=== PATIENT | female | born 1980 | race Hispanic/Latino ===

== ENCOUNTER 2019-06-19 18:36 | Emergency (ER) | payer SELFPAY ==
[~2019-06-19] VITALS: Ht 170.2 cm; Wt 85.3 kg
--- OUTSIDE RECORDS SUMMARY | 2019-06-19 18:39 | XMS REPORT ---
Author Author [facility] Organization [facility] Address Unknown Phone Unavailable Care Team Providers Care Rigger Up Name Role Phone Unavailable Unavailable Payers Payer Name Policy Type Policy Number Effective Date Expiration D ate Problems This patient has no known problems. Allergies, Adverse Reactions, Alerts Allergy Name Allergy Type Status Severity Reaction(s) Onset Date Inacti ve Date Treating Clinician Comments No Known Allergies DA Active U 2018-01-25 00:00:00 No Known Allergies DA Active U 2015-11-20 00:00:00 Medications This patient has no known medications. Encounters Start Date/Time End Date/Time [facility] En[facility] ID 2018-10-07 15:52:00 2018-10-07 15:52:00 Emergency E MHSE [id number] Results Test Description Test Time Test Comments Text Results Atomic Results Result Comments - XR ELBOW 3 + V LT 2019-02-19 18:02:00 Name: JEROMY GONZÁLES [facility] : 1980 Age/S:38 /F [address] [facility] Unit#:[id number] Loc: [place] [address] Phys: Carina Black CATH LAB MANAGER Dis Date: PHONE #: [phone] Status: REG ER FAX #: [phone] Exam Date: 02/19/2019 Reason: PAIN SWELLING BLUNT TRAUMA 5 DAYS AGO EXAMS: CPT CODE: [id number] XR ELBOW 3 + [place] [address] EXAM: Left elbow, 3 views; INFORMATION: Trauma 5 days ago; painful swelling; FINDINGS: Normal shape and structure of the imaged bones; no evidence of fracture or dislocation; no soft tissue abnormalities. IMPRESSION: No evidence of acute osseous trauma or other pathological changes. No radiopaque foreign body. Location code: [facility] Electronically Signed by Noel Hong on 01/2020 at 1802 Reported and signed by: Jostin Hong M.D. CC: Carina Black CATH LAB MANAGER; Tawana Smith MD Technologist: Dipti Davey Trnscrpt Data: 02/19/2019 (1801) [email or web address] Orig Print D/T: S: 02/19/2019 (1804) PAGE 1 Signed Report - CT ABD PELVIS W/CONT 2018-11-19 20:43:00 Nam e: JEROMY GONZÁLES [facility] : 1980 Age/S: 38 / F [address] [facility] Unit #: [id number] Loc: [place] [address] Phys: Trent Russell MD Acct: [id number] Dis Date: Status: REG ER PHONE #: [phone] Exam Date: 11/19/20182019 FAX #: [phone] Reason: periumbilical abdominal pain EXAMS: CPT CODE: [id number] CT ABD PELVIS W/CONT 32197 HISTORY: Periumbilical abdominal pain. COMPARISON: CT scan from February 03, 2015. CT abdomen and pelvis with IV contrast: Automated exposure control CT of abdomen: The lung bases are clear. Dependent changes. The liver is enhancing homogeneously without parenchymal mass or lesions. Gallbladder is without radiopaque stones. Unremarkable spleen. The stomach distended incompletely however it is normal in appearance. Dilated and thickened distal esophagus. Pancreas is enhancing homogeneously. Adrenals are normal. Kidneys are free from hydroureteronephrosis. Homogeneous enhancement. Bilateral excretion. No pathologic adenopathy. Well-opacified abdominal and pelvic vasculature. Retroaortic left renal vein. No bowel obstruction or colitis or diverticulitis or enteritis. Scattered fecal material. CT PELVIS: Appendix is normal. Pelvic bowel loops are unobstructed. Uterus is within normal limits with displaced right tubal ligation clip seen on the left side along with the left clip. Bulky cervix. Ovaries are within normal limits with suboptimal visualization of the right side. No free fluid or free air or abscess. No pelvic pathologic adenopathy. Subcutaneous tissues and the musculature are normal in appearance. No lytic or blastic lesions are noted within the bony skeleton. IMPRESSION: No acute intra-abdominal or intrapelvic pathology with normal PAGE 1 Signed Report (CONTINUED) Name: JEROMY GONZÁLES [facility] : 1980 Age/S: 38 / F [address] [facility] Unit #: [id number] Loc: [place] [address] Phys: Trent Russell MD Acct: [id number] Dis Date: Status: REG ER PHONE #: [phone] Exam Date: 11/19/20182019 FAX #: [phone] Reason: periumbilical abdominal pain EXAMS: CPT CODE: [id number] CT ABD PELVIS W/CONT 80767 <Continued> appendix. Displaced right tubal ligation clip now seen towards the left side along with the left tubal ligation clip which is new from previous exam. Bulky cervix. at 2042 Reported and signed by: Niles Chua M.D. CC: Trent Russell MD Technologist:CONRADO AYALA(R),RDMS,CT CTDI: DLP: Trnscb Date/Time: 11/19/2018 (2042) [email or web address] Orig Print D/T: S: 11/19/2018 (2045) PAGE 2 Signed Report BASIC METABOLIC PANEL 2018-11-19 19:28:00 SODIUM (test code = NA) 144 mmol/L 135-148 POTASSIUM (test code = K) 3.9 mmol/L 3.5-5.1 CHLORIDE (test code = CL) 108 mmol/L 101-109 CARBON DIOXIDE (test code = CO2) 28.6 mmol/L 21-32 ANION GAP (test code = GAP) 11 mmol/L 10-20 GLUCOSE (test code = GLU) 91 mg/dL 74-106 BLOOD UREA NITROGEN (test code = BUN) 13 mg/dL 3-21 GLOMERULAR FILTRATION RATE (test code = GFR) > 60 mL/min >=6 0 Estimated GFR by using Modified MDRD formula.Chronic kidney disease is defined as either kidney damageor GFR <60 mL/min/1.73 m2 for >3 months. CREATININE (test code = CREAT) 0.86 mg/dL 0.55-1.3 BUN/CREATININE RATIO (test code = BUN/CREA) 15.1 10-2 0 CALCIUM (test code = CA) 8.6 mg/dL 8.4-10.2 HEPATIC FUNCTION [id number] 19:28:00* Test Item Value Reference Range Comments TOTAL PROTEIN (test code = PROT) 6.9 g/dL 6.5-8.4 ALBUMIN (test code = ALB) 3.6 g/dL 3.4-4.8 GLOBULIN (test code = GLOB) 3.3 G/DL 1-10 ALBUMIN/GLOBULIN RATIO (test code = A/G) 1.1 RATIO 0.75-1. 50 BILIRUBIN TOTAL (test code = BILT) 0.30 mg/dL 0.0-1.0 BILIRUBIN DIRECT (test code = BILD) 0.10 mg/dL 0.0-0.30 SGOT/AST (test code = AST) 16 U/L 6-32 SGPT/ALT (test code = ALT) 31 U/L 12-78 Note: Change in REFERENCE RANGE due to new reagent method. ALKALINE PHOSPHATASE TOTAL (test code = ALKP) 67 U/L 38 -126 [id number] 19:28:00* Test Item Value Reference Range Comments LIPASE (test code = LIP) 107 U/L 128-270 BASIC METABOLIC [id number] 19:22:00* Test Item Value Reference Range Comments SODIUM (test code = NA) 144 mmol/L 135-148 POTASSIUM (test code = K) 3.9 mmol/L 3.5-5.1 CHLORIDE (test code = CL) 108 mmol/L 101-109 CARBON DIOXIDE (test code = CO2) 28.6 mmol/L 21-32 ANION GAP (test code = GAP) 11 mmol/L 10-20 GLUCOSE (test code = GLU) 91 mg/dL 74-106 BLOOD UREA NITROGEN (test code = BUN) 13 mg/dL 3-21 GLOMERULAR FILTRATION RATE (test code = GFR) > 60 mL/min >=6 0 Estimated GFR by using Modified MDRD formula.Chronic kidney disease is defined as either kidney damageor GFR <60 mL/min/1.73 m2 for >3 months. CREATININE (test code = CREAT) 0.86 mg/dL 0.55-1.3 BUN/CREATININE RATIO (test code = BUN/CREA) 15.1 10-2 0 CALCIUM (test code = CA) 8.6 mg/dL 8.4-10.2 HEPATIC FUNCTION [id number] 19:22:00* Test Item Value Reference Range Comments TOTAL PROTEIN (test code = PROT) gram/dL 6.4-8.2 ALBUMIN (test code = ALB) g/dL 3.4-5.0 GLOBULIN (test code = GLOB) g/dL 2.7-4.2 ALBUMIN/GLOBULIN RATIO (test code = A/G) 0.75-1. 50 BILIRUBIN TOTAL (test code = BILT) mg/dL 0.2-1.2 BILIRUBIN DIRECT (test code = BILD) mg/dL 0.0-0.20 SGOT/AST (test code = AST) IUnit/L 15-37 SGPT/ALT (test code = ALT) U/L 10-69 ALKALINE PHOSPHATASE TOTAL (test code = ALKP) IUnit/L 45 -117 [id number] 19:22:00* Test Item Value Reference Range Comments LIPASE (test code = LIP) Unit/L 144-286 CBC W/O [id number] 19:10:00* Test Item Value Reference Range Comments WHITE BLOOD CELL (test code = WBC) 5.5 K/mm3 4.5-12.5 RED BLOOD CELL (test code = RBC) 3.80 mill/mm3 3.7-5.2 HEMOGLOBIN (test code = HGB) 10.0 gram/dL 11.5-15.5 HEMATOCRIT (test code = HCT) 32.8 % 36.0-46.0 MEAN CELL VOLUME (test code = MCV) 86.3 fL 80-98 MEAN CELL HGB (test code = MCH) 26.3 picogram 27.0-33.0 MEAN CELL HGB CONCETRATION (test code = MCHC) 30.5 gram/dL 33 .0-36.0 RED CELL DISTRIBUTION WIDTH (test code = RDW) 13.9 % 11 .6-16.2 RED CELL DISTRIBUTION WIDTH SD (test code = RDW-SD) 44.6 fL 37.0-51.0 PLATELET COUNT (test code = PLT) 212 K/mm3 150-450 MEAN PLATELET VOLUME (test code = MPV) 9.7 fL 6.7-11.0 URINALYSIS [id number] 19:10:00* Test Item Value Reference Range Comments UA COLOR (test code = COLU) YELLOW YELLOW UA APPEARANCE (test code = APPU) CLEAR CLEAR UA GLUCOSE DIPSTICK (test code = DGLUU) norm mg/dL NEGATIVE UA BILIRUBIN DIPSTICK (test code = BILU) NEGATIVE mg/dL NEGATIV E UA KETONE DIPSTICK (test code = KETU) neg mg/dL NEGATIVE UA SPECIFIC GRAVITY (test code = SGU) 1.005 1.001-1.03 5 UA BLOOD DIPSTICK (test code = UMU) neg Bello/uL NEGATIVE UA PH DIPSTICK (test code = NATALIE) 7.0 5.0-8.0 UA PROTEIN DIPSTICK (test code = PROU) neg mg/dL Neg-15 UA UROBILINIOGEN DIPSTICK (test code = URO) 1 mg/dL 0.0- 0.2 UA NITRITE DIPSTICK (test code = LISSET) NEGATIVE NEGATIVE UA LEUKOCYTE ESTERASE DIPSTICK (test code = LEUU) 25 Keira/uL (Tra ce) uL NEGATIVE UA WBC (test code = WBCU) 3-5 per HPF 0-5 UA RBC (test code = RBCU) 0-2 per HPF 0-5 UA EPITHELIAL CELLS (test code = EPIU) Few (2-5/hpf) per HPF Few UA BACTERIA (test code = BACU) MODERATE per HPF NONE Urine Source? Clean CatchUR HCG [id number] 19:10:00* Test Item Value Reference Range Comments UR HCG QUAL (test code = HCGQLU) NEGATIVE This HCGQL test is NOT applicable for MALE patients.Check with nurse about probable order error.If Tumor Marker Test needed, nurse should order test "HCGTU"(Test #550.69299) Urine Source? Clean Catch- US TRANSVAGINAL NON [id number] 09:43:00 Name: JEROMY GONZÁLES [facility] : 1980 Age/S: 37 / F [address] [facility] Unit #: [id number] Loc: [place] [address] Phys: Twyla Smith MD Acct: [id number] Di s Date: Status: REG ER PHONE #: Exam Date: 10/06/2018914 FAX #: Reason: LLQ pain EXAMS: CPT CODE: [id number] [place] [address] REASON FOR EXAM: LLQ pain eval for torsion EXAM ORDER DATE: 10/06/2018 8:35 AM Attending MRenetta.: Tawana Smith MD PROCEDURE: - DUP AB/PEL/SC COMP, - US PELVIS COMPLETE, - US TRANSVAGINAL NON OB Aleah hnique: Grayscale images, color doppler, and spectral doppler images of th e uterus and ovaries were obtained utilizing A transabdominal and transvag inal approach. Comparison study: Pelvic ultrasound February 03 FINDINGS: Uterus: size: 11.0 x 5.7 x 7.5 c m using transabdominal measurements echogenicity/masses: Nabothian cysts are present. No solid myometrial masses however. endometrium: 8.2 mm on transabdominal imaging Right ovary: Not visualized. No abnormal masses in the right adnexa. Left ovary: size: 4.8 x 1.7 x 3.3 cm cysts/masses: There are 2 cysts. The larger cyst measures 3.0 x 1.8 x 3.7 cm in size and contains a few punctate and linear echogenicities. The smaller cyst is simple and measures 1.6 x 1.2 x 1.5 cm in size. D oppler findings: Normal arterial and venous waveforms. adnexal masses: Non e Free fluid: No fluid seen in the cul-de-sac. IMPRESSION: Sonographically unremarkable uterus. Left ova solo cyst. The larger cyst demonstrates internal echogenicities which ma y represent products of prior hemorrhage. Follow-up ultrasound in 6-12 w eeks is recommended to assess for resolution. The smaller cyst does not warrant further evaluation. Nonvisualization of the right ovary. No abno rmal masses in the right adnexa. PAGE 1 Sign ed Report (CONTINUED) Name: JEROMY GONZÁLES [facility] : 1980 Age/S: 37 / F [facility] [facility] Unit #: [id number] Loc: [place] [address] Phys: Tawana Smith MD Acct: [id number] Dis Date: Status: REG ER PHONE #: [phone] Exam Date: 10/06/2018914 FAX #: [phone] Reason: LLQ pain EXAMS: CPT CODE: [id number] [place] [address] <Continued> at 0943 Reported and signed by: Jimmy Shaffer MD CC: Tawana Smith MD Technologist: Maria Esther Purvis [facility] Trnidb Date/Time: 10/06/2018 (0943) [email or web address] Orig Print D/T: S: 10/06/2018 (0946) Probe: [id number] PAGE 2 Signed Report - US PELVIS [id number] 09:43:00 Name: JEROMY GONZÁLES [facility] : 1980 Age/S: 37 / F [address] [place] [address] Unit #: [id number] Loc: [place] [address] Phys: Tawana Smith MD Acct: [id number] Dis Date: Status: REG ER PHONE #: [phone] Exam Date: 10/06/2018914 FAX #: [phone] Reason: LLQ pain eval for torsion EXAMS: CPT CODE: [id number] US PELVIS COMPLETE 34235 REASON FOR EXAM: LLQ pain eval for torsion EXAM ORDER DATE: 10/06/2018 8:35 AM Attending MSeth: Tawana Smith MD PROCEDURE: - DUP AB/PEL/SC COMP, - US PELVIS COMPLETE, - US TRANSVAGINAL NON OB Technique: Grayscale images, color doppler, and spectral doppler images of the uterus and ovaries were obtained utilizing A transabdominal and transvaginal approach. Comparison study: Pelvic ultrasound February 03, 2015 FINDINGS: Uterus: size: 11.0 x 5.7 x 7.5 cm using transabdominal measurements echogenicity/masses: Nabothian cysts are present. No solid myometrial masses however. endometrium: 8.2 mm on transabdominal imaging Right ovary: Not visualized. No abnormal masses in the right adnexa. Left ovary: size: 4.8 x 1.7 x 3.3 cm cysts/masses: There are 2 cysts. The larger cyst measures 3.0 x 1.8 x 3.7 cm in size and contains a few punctate and linear echogenicities. The smaller cyst is simple and measures 1.6 x 1.2 x 1.5 cm in size. Doppler findings: Normal arterial and venous waveforms. adnexal masses: None Free fluid: No fluid seen in the cul-de-sac. IMPRESSION: Sonographically unremarkable uterus. Left ovarian cyst. The larger cyst demonstrates internal echogenicities which may represent products of prior hemorrhage. Follow-up ultrasound in 6-12 w eeks is recommended to assess for resolution. The smaller cyst does not warrant further evaluation. Nonvisualization of the right ovary. No abno rmal masses in the right adnexa. PAGE 1 Sign ed Report (CONTINUED) Name: JEROMY GONZÁLES [facility] : 1980 Age/S: 37 / F [address] [facility] Unit #: [id number] Loc: [place] [address] Phys: Tawana Smith MD Acct: [id number] Dis Date: Status: REG ER PHONE #: [phone] Exam Date: 10/06/2018 09 FAX #: [phone] Reason: LLQ pain eval for tors ion EXAMS: CPT CODE: [id number] US PELVIS COMPLETE 81284 <Continued> at 0943 Reported and signed by: Jimmy Shaffer MD CC: Tawana Smith MD Technologist: [facility] Esther [facility] Date/Time: 10/06/2018 (0943) [email or web address] Orig Print D/T: S: 10/06/2018 (0946) Probe: PAGE 2 Signed Report - DUP AB/PEL/SC [id number] 09:43:00 Name: JEROMY GONZÁLES [facility] : 1980 Age/S: 37 / F [address] [facility] Unit #: [id number] Loc: [place] [address] Phys: Tawana Smith MD Acct: [id number] Dis Date: Status: REG ER PHONE #: [phone] Exam Date: 10/06/2018914 FAX #: [phone] Reason: LLQ pain eval for torsion EXAMS: CPT CODE: [id number] DUP AB/PEL/SC COMP 27333 REASON FOR EXAM: LLQ pain eval for torsion EXAM ORDER DATE: 10/06/2018 8:35 AM Attending M.D.: Tawana Smith MD PROCEDURE: - DUP AB/PEL/SC COMP, - US PELVIS COMPLETE, - US TRANSVAGINAL NON OB Technique: Grayscale images, color doppler, and spectral doppler images of the uterus and ovaries were obtained utilizing A transabdominal and transvaginal approach. Comparison study: Pelvic ultrasound February 03, 2015 FINDINGS: Uterus: size: 11.0 x 5.7 x 7.5 cm using transabdominal measurements echogenicity/masses: Nabothian cysts are present. No solid myometrial masses however. endometrium: 8.2 mm on transabdominal imaging Right ovary: Not visualized. No abnormal masses in the right adnexa. Left ovary: size: 4.8 x 1.7 x 3.3 cm cysts/masses: There are 2 cysts. The larger cyst measures 3.0 x 1.8 x 3.7 cm in size and contains a few punctate and linear echogenicities. The smaller cyst is simple and measures 1.6 x 1.2 x 1.5 cm in size. Doppler findings: Normal arterial and venous waveforms. adnexal masses: None Free fluid: No fluid seen in the cul-de-sac. IMPRESSION: Sonographically unremarkable uterus. Left ovarian cyst. The larger cyst demonstrates internal echogenicities which may represent products of prior hemorrhage. Follow-up ultrasound in 6-12 w eeks is recommended to assess for resolution. The smaller cyst does not warrant further evaluation. Nonvisualization of the right ovary. No abno rmal masses in the right adnexa. PAGE 1 Sign ed Report (CONTINUED) Name: JEROMY GONZÁLES [facility] : 1980 Age/S: 37 / F [address] [facility] Unit #: [id number] Loc: [place] [address] Phys: Tawana Smith MD Acct: [id number] Dis Date: Status: REG ER PHONE #: [phone] Exam Date: 10/06/2018914 FAX #: [phone] Reason: LLQ pain eval for tors ion EXAMS: CPT CODE: [id number] DUP AB/PEL/SC COMP 40410 <Continued> at 0943 Reported and signed by: Jimmy Shaffer MD CC: Tawana Smith MD Technologist: Maria Esther Purvis RDMS Trnscb Date/Time: 10/06/2018 (0943) [id number] Orig Print D/T: S: 10/06/2018 (0946) Probe: PAGE 2 Signed Report COMPREHENSIVE METABOLIC [id number] 09:07:00* Test Item Value Reference Range Comments SODIUM (test code = NA) 140 mmol/L 136-145 POTASSIUM (test code = K) 4.2 mmol/L 3.5-5.1 CHLORIDE (test code = CL) 107 mmol/L 101-109 CARBON DIOXIDE (test code = CO2) 23.8 mmol/L 21-32 ANION GAP (test code = GAP) 13 mmol/L 10-20 GLUCOSE (test code = GLU) 96 mg/dL 74-106 BLOOD UREA NITROGEN (test code = BUN) 10 mg/dL 3-21 CREATININE (test code = CREAT) 0.57 mg/dL 0.55-1.3 BUN/CREATININE RATIO (test code = BUN/CREA) 17.5 10-2 0 TOTAL PROTEIN (test code = PROT) 6.7 g/dL 6.5-8.4 ALBUMIN (test code = ALB) 3.4 g/dL 3.4-4.8 GLOBULIN (test code = GLOB) 3.3 G/DL 1-10 ALBUMIN/GLOBULIN RATIO (test code = A/G) 1.03 RATIO 0.75-1. 50 CALCIUM (test code = CA) 8.2 mg/dL 8.4-10.2 BILIRUBIN TOTAL (test code = BILT) 0.20 mg/dL 0.0-1.0 SGOT/AST (test code = AST) 15 U/L 6-32 SGPT/ALT (test code = ALT) 22 U/L 12-78 Note: Change in REFERENCE RANGE due to new reagent method. ALKALINE PHOSPHATASE TOTAL (test code = ALKP) 52 U/L 38 -126 [id number] 09:07:00* Test Item Value Reference Range Comments LIPASE (test code = LIP) 118 U/L 128-270 [id number] 09:07:00* Test Item Value Reference Range Comments MAGNESIUM (test code = MAG) 1.8 mg/dL 1.6-2.3 COMPREHENSIVE METABOLIC [id number] 08:42:00* Test Item Value Reference Range Comments SODIUM (test code = NA) 140 mmol/L 136-145 POTASSIUM (test code = K) 4.2 mmol/L 3.5-5.1 CHLORIDE (test code = CL) 107 mmol/L 101-109 CARBON DIOXIDE (test code = CO2) 23.8 mmol/L 21-32 ANION GAP (test code = GAP) 13 mmol/L 10-20 GLUCOSE (test code = GLU) 96 mg/dL 74-106 BLOOD UREA NITROGEN (test code = BUN) 10 mg/dL 3-21 CREATININE (test code = CREAT) 0.57 mg/dL 0.55-1.3 BUN/CREATININE RATIO (test code = BUN/CREA) 17.5 10-2 0 TOTAL PROTEIN (test code = PROT) gram/dL 6.4-8.2 ALBUMIN (test code = ALB) g/dL 3.4-5.0 GLOBULIN (test code = GLOB) g/dL 2.7-4.2 ALBUMIN/GLOBULIN RATIO (test code = A/G) 0.75-1. 50 CALCIUM (test code = CA) 8.2 mg/dL 8.4-10.2 BILIRUBIN TOTAL (test code = BILT) mg/dL 0.2-1.2 SGOT/AST (test code = AST) IUnit/L 15-37 SGPT/ALT (test code = ALT) U/L 10-69 ALKALINE PHOSPHATASE TOTAL (test code = ALKP) IUnit/L 45 -117 [id number] 08:42:00* Test Item Value Reference Range Comments LIPASE (test code = LIP) Unit/L 144-286 [id number] 08:42:00* Test Item Value Reference Range Comments MAGNESIUM (test code = MAG) mg/dL 1.8-2.4 CBC W/AUTO [id number] 08:33:00* Test Item Value Reference Range Comments WHITE BLOOD CELL (test code = WBC) 4.2 K/mm3 4.5-12.5 RED BLOOD CELL (test code = RBC) 3.66 mill/mm3 3.7-5.2 HEMOGLOBIN (test code = HGB) 10.0 gram/dL 11.5-15.5 HEMATOCRIT (test code = HCT) 31.4 % 36.0-46.0 MEAN CELL VOLUME (test code = MCV) 85.8 fL 80-98 MEAN CELL HGB (test code = MCH) 27.3 picogram 27.0-33.0 MEAN CELL HGB CONCETRATION (test code = MCHC) 31.8 gram/dL 33 .0-36.0 RED CELL DISTRIBUTION WIDTH (test code = RDW) 14.7 % 11 .6-16.2 RED CELL DISTRIBUTION WIDTH SD (test code = RDW-SD) 46.6 fL 37.0-51.0 PLATELET COUNT (test code = PLT) 223 K/mm3 150-450 MEAN PLATELET VOLUME (test code = MPV) 9.8 fL 6.7-11.0 NEUTROPHIL % (test code = NT%) 54.7 % 39.0-69.0 LYMPHOCYTE % (test code = LY%) 35.1 % 25.0-55.0 MONOCYTE % (test code = MO%) 8.1 % 0.0-10.0 EOSINOPHIL % (test code = EO%) 1.9 % 0.0-5.0 BASOPHIL % (test code = BA%) 0.2 % 0.0-1.0 NEUTROPHIL # (test code = NT#) 2.31 K/mm3 1.8-7.7 LYMPHOCYTE # (test code = LY#) 1.48 K/mm3 1.0-5.0 MONOCYTE # (test code = MO#) 0.34 K/mm3 0-0.8 EOSINOPHIL # (test code = EO#) 0.08 K/mm3 0.0-0.5 BASOPHIL # (test code = BA#) 0.01 K/mm3 0.0-0.2 MANUAL DIFF REQUIRED (test code = MDIFF) NO URINALYSIS [id number] 08:33:00* Test Item Value Reference Range Comments UA COLOR (test code = COLU) STRAW YELLOW UA APPEARANCE (test code = APPU) SLIGHT HAZY CLEAR UA GLUCOSE DIPSTICK (test code = DGLUU) norm mg/dL NEGATIVE UA BILIRUBIN DIPSTICK (test code = BILU) NEGATIVE mg/dL NEGATIV E UA KETONE DIPSTICK (test code = KETU) neg mg/dL NEGATIVE UA SPECIFIC GRAVITY (test code = SGU) 1.010 1.001-1.03 5 UA BLOOD DIPSTICK (test code = UMU) 250 (4+) Bello/uL NEGATIVE UA PH DIPSTICK (test code = NATALIE) 6.5 5.0-8.0 UA PROTEIN DIPSTICK (test code = PROU) neg mg/dL Neg-15 UA UROBILINIOGEN DIPSTICK (test code = URO) norm mg/dL 0.0- 0.2 UA NITRITE DIPSTICK (test code = LISSET) NEGATIVE NEGATIVE UA LEUKOCYTE ESTERASE DIPSTICK (test code = LEUU) neg uL NEGATIVE UA WBC (test code = WBCU) 3-5 per HPF 0-5 UA RBC (test code = RBCU) 25-50 per HPF 0-5 UA EPITHELIAL CELLS (test code = EPIU) Rare (0-1/hpf) per HPF Fe w UA BACTERIA (test code = BACU) FEW per HPF NONE Urine Source? Clean CatchUR HCG [id number] 08:33:00* Test Item Value Reference Range Comments UR HCG QUAL (test code = HCGQLU) NEGATIVE This HCGQL test is NOT applicable for MALE patients.Check with nurse about probable order error.If Tumor Marker Test needed, nurse should order test "HCGTU"(Test #550.81749) Urine Source? Clean CatchURINALYSIS [id number] 08:30:00* Test Item Value Reference Range Comments UA COLOR (test code = COLU) STRAW YELLOW UA APPEARANCE (test code = APPU) SLIGHT HAZY CLEAR UA GLUCOSE DIPSTICK (test code = DGLUU) norm mg/dL NEGATIVE UA BILIRUBIN DIPSTICK (test code = BILU) NEGATIVE mg/dL NEGATIV E UA KETONE DIPSTICK (test code = KETU) neg mg/dL NEGATIVE UA SPECIFIC GRAVITY (test code = SGU) 1.010 1.001-1.03 5 UA BLOOD DIPSTICK (test code = UMU) 250 (4+) Bello/uL NEGATIVE UA PH DIPSTICK (test code = NATALIE) 6.5 5.0-8.0 UA PROTEIN DIPSTICK (test code = PROU) neg mg/dL Neg-15 UA UROBILINIOGEN DIPSTICK (test code = URO) norm mg/dL 0.0- 0.2 UA NITRITE DIPSTICK (test code = LISSET) NEGATIVE NEGATIVE UA LEUKOCYTE ESTERASE DIPSTICK (test code = LEUU) neg uL NEGATIVE UA WBC (test code = WBCU) per HPF 0-5 UA RBC (test code = RBCU) per HPF 0-5 UA EPITHELIAL CELLS (test code = EPIU) per HPF Few UA BACTERIA (test code = BACU) per HPF NONE Urine Source? Clean CatchUR HCG [id number] 08:30:00* Test Item Value Reference Range Comments UR HCG QUAL (test code = HCGQLU) Urine Source? Clean Catch
[2019-06-19] MEDS ORDERED: SODIUM CHLORIDE 0.9% 1000ML 1,000 ML IV STA (19:25)
[2019-06-19] MEDS ORDERED: ONDANSETRON HCL INJ 2MG/ML 2ML 2 MG/ML VIAL IV STA (19:25)
[2019-06-19] MEDS ORDERED: MORPHINE SULFATE INJ 4 MG/ML INJ 1ML IV STA (19:25)
--- NOTE | 2019-06-19 19:29 | Emergency Department Note ---
History of Present Illnes History of Present Illness Stated Complaint: PAIN AND BLEEDING IN LOWER LEFT ABD History of Present Illness This is a 38 year old female to the ED for 2.5 days with vaginal bleeding. . Historian: Patient Adolescent Psychiatrist Required: No Location: LLQ pain Radiation: non-radiation Severity: moderate Onset quality: gradual Duration (how long): day(s) (2.5) Timing of current episode: constant Progression: worsening Chronicity: new Relieving factors: none Exacerbating factors: none Associated symptoms: denies other symptoms Treatments prior to arrival: none Past Medical/Family History Physician Review I have reviewed the patient's past medical and family history. Any updates have been documented here. Past Medical History Recent Fever: No Clinical Suspicion of Infectio: No Past Medical History: None Social History Smoking Cessation: Never Smoker Alcohol Use: None Any Illegal Drug Use: No Review of Systems Review of Systems Constitutional: no symptoms EENTM: no symptoms Cardiovascular: no symptoms Gastointestinal/Abdominal: abdominal pain Genitourinary: no symptoms, other (vaginal bleeding) Musculoskeletal: no symptoms Integumentary: no symptoms Neurological: no symptoms Psychological: no symptoms Endocrine: no symptoms Hematological/Lymphatic: no symptoms Review of other systems All other systems reviewed and negative. Physical Exam Related Data Allergies: Coded Allergies: No Known Allergies (Unverified , 06/19/19) Triage Vital Signs Vital Signs Date Time Temp Pulse Resp B/P (MAP) Pulse Ox O2 Delivery O2 Flow Rate FiO2 06/19/19 19:21 99.0 105 17 144/94 97 Physical Exam CONSTITUTIONAL Constitutional: distressed HENT HENT: normocephalic, atraumatic, oropharynx clear/moist, nose normal HENT - Ear: left ext ear normal, right ext ear normal EYES Eyes: PERRL, conjunctivae normal NECK Neck: ROM normal PULMONARY Pulmonary: effort normal, breath sounds normal CARDIOVASCULAR Cardiovascular: regular rhythm, heart sounds normal, capillary refill normal, tachycardia GASTROINTESTINAL Abdominal: soft (LLQ pain) GENITOURINARY SKIN Skin: warm, dry MUSCULOSKELETAL Musculoskeletal: ROM normal NEUROLOGICAL Neurological: alert, oriented x 3, no gross motor or sensory deficits PSYCHOLOGICAL Results Laboratory Lab results reviewed: Yes Laboratory comments UA : moderate bacteria Imaging Y: Yes Impressions [place] [address] Patient Name: JEROMY GONZÁLES MR #: [id number] : 1980 Age/Sex: 38/F Req #: [id number] [facility] Physician: Ordered by: GOLDY HANSEN DO Report #: [id number] Location: ER Room/Bed: Procedure: [id number] CT/CT ABDOMEN/PELVIS W Exam Date: 06/19/19 Exam Time: 2049 REPORT STATUS: Signed EXAM: CT Abdomen and Pelvis WITH contrast INDICATION: Pain COMPARISON: None. TECHNIQUE: Abdomen and pelvis were scanned utilizing a multidetector helical scanner from the lung base to the pubic symphysis after administration of IV contrast. Coronal and sagittal reformations were obtained. Routine protocol was performed. Scan was performed when during portal venous phase. IV CONTRAST: 100 mL of Isovue 370 ORAL CONTRAST: Water COMPLICATIONS: None RADIATION DOSE: Total DLP: 485 mGy*cm Estimated effective dose: (DLP x 0.015 x size factor) mSv CTDIvol has been reviewed. It is below the limits set by the Radiation Protocol Committee (RPC). Dose modulation, iterative reconstruction, and/or weight based adjustment of the mA/kV was utilized to reduce the radiation dose to as low as reasonably achievable. FINDINGS: LINES and TUBES: None. LOWER THORAX: Unremarkable HEPATOBILIARY: No focal hepatic lesions. No biliary ductal dilation. GALLBLADDER: No radio-opaque stones or sludge. No wall thickening. SPLEEN: No splenomegaly. PANCREAS: No focal masses or ductal dilatation. ADRENALS: No adrenal nodules KIDNEYS/URETERS: Kidneys enhance symmetrically. No hydronephrosis. No cystic or solid mass lesions. No stones. GI TRACT: No abnormal distention, wall thickening, or evidence of bowel obstruction. Appendix is normal. PELVIC ORGANS/BLADDER: Left fallopian tube surgical clips. Mild left hydrosalpinx. The uterus and ovaries are grossly unremarkable. LYMPH NODES: No lymphadenopathy. VESSELS: Unremarkable. PERITONEUM / RETROPERITONEUM: No free air or fluid. BONES: Unremarkable. SOFT TISSUES: Unremarkable. IMPRESSION: 1. No acute abdominal or pelvic abnormality. 2. Nonspecific left hydrosalpinx, better imaged on concurrent pelvic ultrasound. Signed by: Sakshi Garcia MD on 06/19/2019 9:27 PM Dictated By: SAKSHI GARCIA MD 26 Transcribed By: RUSTY on 06/19/192126 COPY TO: GOLDY HANSEN DO~ Imaging Comments [place] [address] Patient Name: JEROMY GONZÁLES MR #: [id number] : 1980 Age/Sex: 38/F Req #: [id number] Adm Physician: Ordered by: GOLDY HANSEN DO Report #: [id number] Location: ER Room/Bed: Procedure: [id number] US/US TRANSVAGINAL Exam Date: 06/19/19 Exam Time: 2047 REPORT STATUS: Signed EXAM: Transabdominal and Transvaginal Pelvic Ultrasound INDICATION: ^dysfunctional uterine bleeding ^[id number] ^2047 COMPARISON: None TECHNIQUE: Grayscale transverse and sagittal transabdominal and transvaginal images were obtained of the pelvis. Transvaginal imaging was medically necessary to better evaluate the endometrium and the adnexa. CLINICAL HISTORY: 38 year old G4, last menstrual period: 12/2018. FINDINGS: Uterus Orientation: Normal Size: 9.8 x 5.2 x 5.9 cm, Normal Mass: None Cervix: Small nabothian cyst Endometrium: Thickness: 0.5 cm, Normal. Appearance: Homogeneous echotexture without focal thickening. Right ovary: Size: 2.6 x 2.1 x 2.4 cm Mass/Cyst: None Left ovary: Size: 2.7 x 1.5 x 1.9 cm Mass/Cyst: None Adnexa: Small amount of fluid within the left adnexum and fallopian tube Cul-de-sac: No free fluid IMPRESSION: Mild left hydrosalpinx. Normal sonographic appearance of the uterus. Signed by: Sakshi Garcia MD on 06/19/2019 9:20 PM Dictated By: SAKSHI GARCIA MD 19 Transcribed By: RUSTY on 06/19/192119 COPY TO: GOLDY HANSEN DO~ Assessment & Plan Assessment & Plan Problems: (1) Dysfunctional uterine bleeding (2) UTI (urinary tract infection) (3) Hydrosalpinx Assessment & Plan patient to be discharged with abx for treatment of UTI and dx of hydrosalpinx. P atient to f/u with laboratory scientist Depart Disposition: HOME, SELF-CARE Last Vital Signs Date Time Temp Pulse Resp B/P (MAP) Pulse Ox O2 Delivery O2 Flow Rate FiO2 06/19/19 22:16 61 18 100 06/19/19 21:10 112/70 06/19/19 19:21 99.0 Medications in the ED Sodium Chloride 1,000 ml @ 0 mls/hr Q0M STAT IV Last administered on 06/19/19at 20:30; Admin Dose 999 MLS/HR; Start 06/19/19 at 19:25; Stop 06/19/19 at 22:30; Status DC Morphine Sulfate 4 mg ONCE STAT IV Last administered on 06/19/19at 20:30; Admin Dose 4 MG; Start 06/19/19 at 19:25; Stop 06/19/19 at 22:30; Status DC Ondansetron HCl 4 mg ONCE STAT IV Last administered on 06/19/19at 20:31; Admin Dose 4 MG; Start 06/19/19 at 19:25; Stop 06/19/19 at 22:30; Status DC Sodium Chloride 50 ml @ ud STK-MED ONCE .ROUTE ; Start 06/19/19 at 21:23; Stop 06/19/19 at 21:18; Status DC Iopamidol 74,000 mg STK-MED ONCE INJ ; Start 06/19/19 at 21:23; Stop 06/19/19 at 21:18; Status GOLDY LYNN DO June 19, 2019 18:59
[2019-06-19 19:41] LABS: BASOPHILS % 0.4 % (0.0-1.0); EOSINOPHILS # (AUTO) 0.2 (0.0-0.4); EOSINOPHILS % 2.6 % (0.0-6.0); HEMOGLOBIN 12.4 g/dL (12.0-16.0); LYMPHOCYTES # (AUTO) 2.5 (1.0-3.2); LYMPHOCYTES % 35.5 % (18.0-39.1); MEAN CORPUSCULAR HEMOGLOBIN 28.4 pg (28-32); MEAN CORPUSCULAR HGB CONC 32.6 g/dL (31-35); MEAN CORPUSCULAR VOLUME 87.2 fL (81-99); MONOCYTES # (AUTO) 0.5 (0.2-0.8); MONOCYTES % 7.3 % (4.4-11.3); NEUTROPHILS # (AUTO) 3.8 (2.1-6.9); NEUTROPHILS % 53.9 % (38.7-80.0); PLATELET COUNT 247 x10e3/uL (140-360); RED BLOOD COUNT 4.36 x10e6/uL (3.6-5.1); RED CELL DISTRIBUTION WIDTH 15.2 % (11.7-14.4)
[2019-06-19 19:49] LABS: INR 0.82; PROTHROMBIN TIME 11.8 seconds (11.9-14.5)
[2019-06-19 19:59] LABS: ALANINE AMINOTRANSFERASE 20 IU/L (0-55); ALBUMIN 3.7 g/dL (3.5-5.0); ALBUMIN/GLOBULIN RATIO 1.1 (0.8-2.0); ALKALINE PHOSPHATASE 64 IU/L (40-150); ANION GAP 13.1 mmol/L (8-16); BLOOD UREA NITROGEN 12 mg/dL (7-26); BUN/CREATININE RATIO 16 (6-25); CALCIUM 9.3 mg/dL (8.4-10.2); CARBON DIOXIDE 21 mmol/L (22-29); CHLORIDE 109 mmol/L (98-107); CREATININE, SERUM 0.74 mg/dL (0.57-1.11); EST GLOMERULAR FILTRATION RATE > 60 ML/MIN (60-); GLUCOSE 99 mg/dL (74-118); POTASSIUM 4.1 mmol/L (3.5-5.1); SODIUM 139 mmol/L (136-145)
[2019-06-19 20:02] LABS: CLARITY,URINE SL CLOUDY (CLEAR); COLOR,URINE YELLOW (YELLOW); KETONES,URINE NEGATIVE (NEGATIVE); LEUKOCYTE ESTERASE ,URINE NEGATIVE (NEGATIVE); NITRITE,URINE NEGATIVE (NEGATIVE); PROTEIN,URINE DIPSTICK NEGATIVE (NEGATIVE); URINE UROBILINOGEN 0.2 mg/dL (0.2 - 1)
[2019-06-19 20:03] LABS: BILIRUBIN,URINE NEGATIVE (NEGATIVE); PREGNANCY TEST, URINE NEGATIVE (NEGATIVE)
[2019-06-19 20:18] LABS: BACTERIA,URINE MODERATE /HPF; EPITHELIAL CELLS,URINE FEW /LPF; MUCUS,URINE MANY (RARE)
[2019-06-19] MEDS ORDERED: SODIUM CHLORIDE 0.9% 50ML 50 ML ONE (21:23)
[2019-06-19] MEDS ORDERED: IOPAMIDOL 370 MG/ML 200 ML INFUS..BTL INJ ONE (21:23)
--- NOTE | 2019-06-19 21:24 | Diagnostic Imaging Report ---
EXAM: Transabdominal and Transvaginal Pelvic Ultrasound INDICATION: ^dysfunctional uterine bleeding ^[id number] ^2047 COMPARISON: None TECHNIQUE: Grayscale transverse and sagittal transabdominal and transvaginal images were obtained of the pelvis. Transvaginal imaging was medically necessary to better evaluate the endometrium and the adnexa. CLINICAL HISTORY: 38 year old G4, last menstrual period: 12/2018. FINDINGS: Uterus Orientation: Normal Size: 9.8 x 5.2 x 5.9 cm, Normal Mass: None Cervix: Small nabothian cyst Endometrium: Thickness: 0.5 cm, Normal. Appearance: Homogeneous echotexture without focal thickening. Right ovary: Size: 2.6 x 2.1 x 2.4 cm Mass/Cyst: None Left ovary: Size: 2.7 x 1.5 x 1.9 cm Mass/Cyst: None Adnexa: Small amount of fluid within the left adnexum and fallopian tube Cul-de-sac: No free fluid IMPRESSION: Mild left hydrosalpinx. Normal sonographic appearance of the uterus. Signed by: Jose Melendez MD on 06/19/2019 9:20 PM
--- NOTE | 2019-06-19 21:31 | Diagnostic Imaging Report ---
EXAM: CT Abdomen and Pelvis WITH contrast INDICATION: Pain COMPARISON: None. TECHNIQUE: Abdomen and pelvis were scanned utilizing a multidetector helical scanner from the lung base to the pubic symphysis after administration of IV contrast. Coronal and sagittal reformations were obtained. Routine protocol was performed. Scan was performed when during portal venous phase. IV CONTRAST: 100 mL of Isovue 370 ORAL CONTRAST: Water COMPLICATIONS: None RADIATION DOSE: Total DLP: 485 mGy*cm Estimated effective dose: (DLP x 0.015 x size factor) mSv CTDIvol has been reviewed. It is below the limits set by the Radiation Protocol Committee (RPC). Dose modulation, iterative reconstruction, and/or weight based adjustment of the mA/kV was utilized to reduce the radiation dose to as low as reasonably achievable. FINDINGS: LINES and TUBES: None. LOWER THORAX: Unremarkable HEPATOBILIARY: No focal hepatic lesions. No biliary ductal dilation. GALLBLADDER: No radio-opaque stones or sludge. No wall thickening. SPLEEN: No splenomegaly. PANCREAS: No focal masses or ductal dilatation. ADRENALS: No adrenal nodules KIDNEYS/URETERS: Kidneys enhance symmetrically. No hydronephrosis. No cystic or solid mass lesions. No stones. GI TRACT: No abnormal distention, wall thickening, or evidence of bowel obstruction. Appendix is normal. PELVIC ORGANS/BLADDER: Left fallopian tube surgical clips. Mild left hydrosalpinx. The uterus and ovaries are grossly unremarkable. LYMPH NODES: No lymphadenopathy. VESSELS: Unremarkable. PERITONEUM / RETROPERITONEUM: No free air or fluid. BONES: Unremarkable. SOFT TISSUES: Unremarkable. IMPRESSION: 1. No acute abdominal or pelvic abnormality. 2. Nonspecific left hydrosalpinx, better imaged on concurrent pelvic ultrasound. Signed by: Jose Melendez MD on 06/19/2019 9:27 PM
[2019-06-19 22:16] VITALS: BP 120/81
== END 2019-06-19 22:35 | disposition home or self-care (01) ==
LOC: ER 18:36
DX: N93.8 Other specified abnormal uterine and vaginal bleeding (principal); R10.32 Left lower quadrant pain; N39.0 Urinary tract infection, site not specified; N70.11 Chronic salpingitis
CPT/HCPCS: 36415; 74177; 76830; 80053; 81001; 81025; 85025; 85610; 99284; J2270; J2405; J7030; Q9967

== ENCOUNTER 2019-08-25 15:57 | Emergency (ER) | payer SELFPAY ==
[~2019-08-25] VITALS: Ht 170.2 cm; Wt 85.3 kg
[2019-08-25] MEDS ORDERED: PIPER-TAZ 3.375 GM 50 ML IV STA (16:16)
[2019-08-25] MEDS ORDERED: SODIUM CHLORIDE 0.9% 1000ML 1,000 ML IV STA (16:16)
[2019-08-25] MEDS ORDERED: KETOROLAC TROMETHAMINE 30 MG/ML VIAL IV STA (16:16)
[2019-08-25 16:34] LABS: BASOPHILS % 0.5 % (0.0-1.0); EOSINOPHILS # (AUTO) 0.1 (0.0-0.4); EOSINOPHILS % 2.3 % (0.0-6.0); HEMATOCRIT 36.3 % (34.2-44.1); HEMOGLOBIN 11.8 g/dL (12.0-16.0); LYMPHOCYTES # (AUTO) 2.4 (1.0-3.2); LYMPHOCYTES % 41.3 % (18.0-39.1); MEAN CORPUSCULAR HEMOGLOBIN 28.2 pg (28-32); MEAN CORPUSCULAR HGB CONC 32.5 g/dL (31-35); MEAN CORPUSCULAR VOLUME 86.8 fL (81-99); MONOCYTES # (AUTO) 0.4 (0.2-0.8); MONOCYTES % 7.4 % (4.4-11.3); NEUTROPHILS # (AUTO) 2.8 (2.1-6.9); NEUTROPHILS % 48.3 % (38.7-80.0); PLATELET COUNT 266 x10e3/uL (140-360); RED BLOOD COUNT 4.18 x10e6/uL (3.6-5.1); RED CELL DISTRIBUTION WIDTH 12.9 % (11.7-14.4)
[2019-08-25 16:42] LABS: CLARITY,URINE SL CLOUDY (CLEAR); COLOR,URINE YELLOW (YELLOW)
[2019-08-25 16:43] LABS: BILIRUBIN,URINE NEGATIVE (NEGATIVE); KETONES,URINE NEGATIVE (NEGATIVE); LEUKOCYTE ESTERASE ,URINE NEGATIVE (NEGATIVE); NITRITE,URINE NEGATIVE (NEGATIVE); PROTEIN,URINE DIPSTICK NEGATIVE (NEGATIVE); RBC,URINE 0-5 /HPF (0-5); URINE UROBILINOGEN 0.2 mg/dL (0.2 - 1); WBC,URINE (MAN) 0-5 /HPF (0-5)
[2019-08-25 16:44] LABS: BACTERIA,URINE RARE /HPF; EPITHELIAL CELLS,URINE FEW /LPF
[2019-08-25 16:45] LABS: AMPHETAMINES SCREEN,URINE NEGATIVE (NEGATIVE); BENZODIAZEPINES SCREEN,URINE NEGATIVE (NEGATIVE); PHENCYCLIDINE SCREEN,URINE NEGATIVE (NEGATIVE)
[2019-08-25 16:51] LABS: ALANINE AMINOTRANSFERASE 25 IU/L (0-55); ALBUMIN 3.7 g/dL (3.5-5.0); ALKALINE PHOSPHATASE 63 IU/L (40-150); BLOOD UREA NITROGEN 8 mg/dL (7-26); BUN/CREATININE RATIO 12 (6-25); CARBON DIOXIDE 25 mmol/L (22-29); CHLORIDE 106 mmol/L (98-107); CREATINE KINASE 57 IU/L (29-168); CREATININE, SERUM 0.68 mg/dL (0.57-1.11); EST GLOMERULAR FILTRATION RATE > 60 ML/MIN (60-); GLUCOSE 92 mg/dL (74-118); SODIUM 137 mmol/L (136-145)
--- NOTE | 2019-08-25 17:13 | Emergency Department Note ---
History of Present Illnes History of Present Illness Chief Complaint: Flank Pain History of Present Illness This is a 38 year old female . Chief Complaint Comment c/o non constant radiating right flank pain went to urgent care mon night for the same issue told she had a kidney infection states pain is worse and will not go away denies dysuria c/o n/v denies hx of kidney stones seen by dr garland Historian: Patient Arrival Mode: Car Radiation: Reports non-radiation Severity: mild Timing of current episode: constant Progression: worsening Relieving factors: none Past Medical/Family History Physician Review I have reviewed the patient's past medical and family history. Any updates have been documented here. Past Medical History Recent Fever: No Clinical Suspicion of Infectio: No New/Unexplained Change in Ment: No Past Medical History: None Past Surgical History: Tubal Ligation Social History Physically hurt or threatened: No Other Last Tetanus: UTD Review of Systems Review of Systems Constitutional: Reports no symptoms EENTM: Reports no symptoms Cardiovascular: Reports no symptoms Respiratory: Reports no symptoms Gastrointestinal: Reports no symptoms Genitourinary: Reports no symptoms Musculoskeletal: Reports as per HPI, Reports back pain Integumentary: Reports no symptoms Neurological: Reports no symptoms Psychological: Reports no symptoms Endocrine: Reports no symptoms Hematological/Lymphatic: Reports no symptoms Physical Exam Related Data Allergies: Coded Allergies: No Known Allergies (Unverified , 06/19/19) Triage Vital Signs Vital Signs Date Time Temp Pulse Resp B/P (MAP) Pulse Ox O2 Delivery O2 Flow Rate FiO2 08/25/19 16:12 98.3 18 15 108/99 99 Room Air Vital signs reviewed: Yes Physical Exam CONSTITUTIONAL Constitutional: Present well-developed, Present well-nourished HENT HENT: Present normocephalic, Present atraumatic, Present oropharynx clear/moist, Present nose normal HENT L/R: Present left ext ear normal, Present right ext ear normal EYES Eyes: Reports PERRL, Reports conjunctivae normal NECK Neck: Present ROM normal PULMONARY Pulmonary: Present effort normal, Present breath sounds normal CARDIOVASCULAR Cardiovascular: Present regular rhythm, Present heart sounds normal, Present capillary refill normal, Present normal rate GASTROINTESTINAL Abdominal: Present soft, Present nontender, Present bowel sounds normal GENITOURINARY Genitourinary: Present exam deferred SKIN Skin: Present warm, Present dry MUSCULOSKELETAL Musculoskeletal: Present ROM normal NEUROLOGICAL Neurological: Present alert, Present oriented x 3, Present no gross motor or sensory deficits PSYCHOLOGICAL Psychological: Present mood/affect normal, Present judgement normal Results Laboratory Lab results reviewed: Yes Laboratory comments Laboratory Tests Test 08/25/19 16:17 White Blood Count 5.69 x10e3/uL (4.8-10.8) Red Blood Count 4.18 x10e6/uL (3.6-5.1) Hemoglobin 11.8 g/dL (12.0-16.0) Hematocrit 36.3 % (34.2-44.1) Mean Corpuscular Volume 86.8 fL (81-99) Mean Corpuscular Hemoglobin 28.2 pg (28-32) Mean Corpuscular Hemoglobin Concent 32.5 g/dL (31-35) Red Cell Distribution Width 12.9 % (11.7-14.4) Platelet Count 266 x10e3/uL (140-360) Neutrophils (%) (Auto) 48.3 % (38.7-80.0) Lymphocytes (%) (Auto) 41.3 % (18.0-39.1) Monocytes (%) (Auto) 7.4 % (4.4-11.3) Eosinophils (%) (Auto) 2.3 % (0.0-6.0) Basophils (%) (Auto) 0.5 % (0.0-1.0) Neutrophils # (Auto) 2.8 (2.1-6.9) Lymphocytes # (Auto) 2.4 (1.0-3.2) Monocytes # (Auto) 0.4 (0.2-0.8) Eosinophils # (Auto) 0.1 (0.0-0.4) Basophils # (Auto) 0.0 (0.0-0.1) Absolute Immature Granulocyte (auto 0.01 x10e3/uL (0-0.1) Urine Color Yellow (YELLOW) Urine Clarity Sl cloudy (CLEAR) Urine pH 5.5 (5 - 7) Urine Specific [place] 1.025 (1.010-1.025) Urine Protein Negative (NEGATIVE) Urine Glucose (UA) Negative (NEGATIVE) Urine Ketones Negative (NEGATIVE) Urine Blood Negative (NEGATIVE) Urine Nitrite Negative (NEGATIVE) Urine Bilirubin Negative (NEGATIVE) Urine Urobilinogen 0.2 mg/dL (0.2 - 1) Urine Leukocyte Esterase Negative (NEGATIVE) Urine RBC 0-5 /HPF (0-5) Urine WBC 0-5 /HPF (0-5) Urine Epithelial Cells Few /LPF (NONE) Urine Bacteria Rare /HPF (NONE) Sodium Level 137 mmol/L (136-145) Potassium Level 4.0 mmol/L (3.5-5.1) Chloride Level 106 mmol/L (98-107) Carbon Dioxide Level 25 mmol/L (22-29) Anion Gap 10.0 mmol/L (8-16) Blood Urea Nitrogen 8 mg/dL (7-26) Creatinine 0.68 mg/dL (0.57-1.11) Estimat Glomerular Filtration Rate > 60 ML/MIN (60-) BUN/Creatinine Ratio 12 (6-25) Glucose Level 92 mg/dL (74-118) Lactic Acid Level 1.1 mmol/L (0.5-2.0) Calcium Level 9.0 mg/dL (8.4-10.2) Total Bilirubin 0.4 mg/dL (0.2-1.2) Aspartate Amino Transf (AST/SGOT) 21 IU/L (5-34) Alanine Aminotransferase (ALT/SGPT) 25 IU/L (0-55) Alkaline Phosphatase 63 IU/L (40-150) Creatine Kinase 57 IU/L (29-168) Creatine Kinase MB 1.10 ng/mL (0-5.0) Troponin I < 0.001 ng/mL (0-0.300) Total Protein 7.3 g/dL (6.5-8.1) Albumin 3.7 g/dL (3.5-5.0) Globulin 3.6 g/dL (2.3-3.5) Albumin/Globulin Ratio 1.0 (0.8-2.0) Urine Opiates Screen Negative (NEGATIVE) Urine Methadone Screen Negative (NEGATIVE) Urine Barbiturates Screen Negative (NEGATIVE) Urine Phencyclidine Screen Negative (NEGATIVE) Urine Amphetamines Screen Negative (NEGATIVE) Urine Methamphetamines Screen Negative (NEGATIVE) Urine Benzodiazepines Screen Negative (NEGATIVE) Urine Cocaine Screen Beg (NEGATIVE) Urine Cannabinoids Screen Negative (NEGATIVE) Imaging Imaging results reviewed: Yes Assessment & Plan Medical Decision Making MDM 38-year-old female arrives to the ED with complaints of right flank pain, labwork, urinalysis and CT scan unremarkable. Patient informed findings may related to a muscle strain. I estimate there is LOW risk for ABDOMINAL AORTIC ANEURYSM, CAUDA EQUINA SYNDROME, EPIDURAL MASS LESION, SPINAL STENOSIS, OR HERNIATED DISK CAUSING SEVERE STENOSIS, thus I consider the discharge disposition reasonable. We have discussed the diagnosis and risks, and we agree with discharging home to follow- up with their primary doctor. We also discussed returning to the Emergency Department immediately if new or worsening symptoms occur. We have discussed the symptoms which are most concerning (e.g., saddle anesthesia, urinary or bowel incontinence or retention, changing or worsening pain) that necessitate immediate return. Assessment & Plan Final Impression: (1) Acute back pain Depart Disposition: HOME, SELF-CARE Last Vital Signs Date Time Temp Pulse Resp B/P (MAP) Pulse Ox O2 Delivery O2 Flow Rate FiO2 08/25/19 16:12 98.3 18 15 108/99 99 Room Air Medications in the ED Sodium Chloride 1,000 ml @ 0 mls/hr Q0M STAT IV ; Start 08/25/19 at 16:16; Stop 08/25/19 at 16:19; Status DC Ketorolac Tromethamine 30 mg ONCE STAT IV ; Start 08/25/19 at 16:16; Stop 08/25/19 at 16:24; Status DC Piperacillin Sod/ Tazobactam Sod 50 ml @ 50 mls/hr NOW STAT IV ; Start 08/25/19 at 16:16; Stop 08/25/19 at 17:15 PLACIDO GARLAND DO Aug 25, 2019 17:13
[2019-08-25] MEDS ORDERED: SODIUM CHLORIDE 0.9% 50ML 50 ML ONE (17:45)
[2019-08-25] MEDS ORDERED: IOPAMIDOL 370 MG/ML 200 ML INFUS..BTL INJ ONE (17:46)
--- NOTE | 2019-08-25 17:58 | Diagnostic Imaging Report ---
EXAM: CT Abdomen and Pelvis WITH contrast INDICATION: 38-year-old female who presents with flank pain. COMPARISON: None. TECHNIQUE: Abdomen and pelvis were scanned utilizing a multidetector helical scanner from the lung base to the pubic symphysis after administration of IV contrast. Coronal and sagittal reformations were obtained. Routine protocol was performed. Scan was performed when during portal venous phase. IV CONTRAST: 100 mL of Isovue 370 ORAL CONTRAST: None COMPLICATIONS: None RADIATION DOSE: Total DLP: 517.75 mGy*cm Estimated effective dose: (DLP x 0.015 x size factor) mSv CTDIvol has been reviewed. It is below the limits set by the Radiation Protocol Committee (RPC). Dose modulation, iterative reconstruction, and/or weight based adjustment of the mA/kV was utilized to reduce the radiation dose to as low as reasonably achievable. FINDINGS: LINES and TUBES: None. LOWER THORAX: Unremarkable HEPATOBILIARY: No focal hepatic lesions. No biliary ductal dilation. GALLBLADDER: No radio-opaque stones or sludge. No wall thickening. SPLEEN: No splenomegaly. PANCREAS: No focal masses or ductal dilatation. ADRENALS: No adrenal nodules KIDNEYS/URETERS: Kidneys enhance symmetrically. No hydronephrosis. No cystic or solid mass lesions. No stones. GI TRACT: No abnormal distention, wall thickening, or evidence of bowel obstruction. Appendix is normal. PELVIC ORGANS/BLADDER: Left fallopian tube surgical clips are unchanged. Mild left hydrosalpinx, unchanged. There are small amount of fluid in endometrium, likely physiologic. LYMPH NODES: No lymphadenopathy. VESSELS: Retroaortic left renal vein. The major abdominal arteries are otherwise unremarkable. PERITONEUM / RETROPERITONEUM: No free air or fluid. BONES: Unremarkable. SOFT TISSUES: Unremarkable. IMPRESSION: 1. No evidence of obstructive renal or ureteral stones. No acute intra-abdominal abnormality identified. 2. No interval changes in mild left hydrosalpinx. Signed by: Dm Esposito MD on 08/25/2019 5:55 PM
[2019-08-25] MEDS ORDERED: ROBAXIN-750750 MG PO (18:02)
[2019-08-25] MEDS ORDERED: MOTRIN200 MG PO (18:02)
== END 2019-08-25 18:57 | disposition home or self-care (01) ==
LOC: ER 16:25
DX: M54.5 Low back pain (principal)
CPT/HCPCS: 36415; 74177; 80053; 80307; 81001; 81025; 82550; 82553; 83605; 84484; 85025; 87040; 99284; J1885; J2543; J7030; Q9967